=== PATIENT | female | born 1985 | race Asian ===

== ENCOUNTER 2018-01-07 06:05 | Observation (INO) | payer BC ==
[~2018-01-07] VITALS: Ht 154.9 cm; Wt 68.0 kg
[2018-01-07] MEDS ORDERED: MORPHINE 4 MG/ML INJ. SYRINGE ONE (15:00)
== END 2018-01-07 08:40 | disposition home or self-care (01) ==
LOC: SPU 06:05
PROVIDERS: ADMIT Specialist; ATTEND Specialist
DX: O26.893 Other specified pregnancy related conditions, third trimester (principal); R10.31 Right lower quadrant pain; Z3A.37 37 weeks gestation of pregnancy
CPT/HCPCS: 81002; G0378; J2270

== ENCOUNTER 2019-08-19 10:30 | Inpatient (IN) | payer BC ==
[~2019-08-19] VITALS: Ht 154.9 cm; Wt 65.8 kg
[2019-08-19] MEDS ORDERED: TERBUTALINE SULFATE 1 MG/ML VIAL SUBCUT PRN (12:45)
[2019-08-19 13:28] LABS: BILIRUBIN,URINE NEGATIVE (NEGATIVE); BLOOD, URINE 3+ (NEGATIVE); CLARITY/URINE CLEAR (CLEAR); COLOR,URINE YELLOW (YELLOW); GLUCOSE,URINE NEGATIVE (NEGATIVE); KETONES,URINE NEGATIVE (NEGATIVE); LEUKOCYTE ESTERASE ,URINE NEGATIVE (NEGATIVE); NITRITE, URINE NEGATIVE (NEGATIVE); PROTEIN URINE NEGATIVE (NEGATIVE); UROBILINOGEN,URINE 0.2 (0.2-1.0)
[2019-08-19 13:33] LABS: BASOPHILS % (AUTO) 0.4 % (0.0-2.0); EOSINOPHILS % (AUTO) 0.8 % (0.0-4.0); HEMATOCRIT 39.8 % (36-48); HEMOGLOBIN 13.5 g/dL (12.0-16.0); LYMPHOCYTES # (AUTO) 0.8 K/uL (1.0-5.5); MEAN CORPUSCULAR HEMOGLOBIN 32 pg (27-31); MEAN CORPUSCULAR HGB CONC 34 % (32-36); MEAN CORPUSCULAR VOLUME 94 fL (79.0-98.0); MONOCYTES # (AUTO) 0.5 K/uL (0.0-1.0); MONOCYTES % (AUTO) 9.5 % (1.7-9.3); NEUTROPHILS # (AUTO) 4.2 K/uL (1.8-7.7); NEUTROPHILS % (AUTO) 74.3 % (40.0-70.0); PLATELET COUNT (AUTO) 140 K/uL (130-430); RED BLOOD CELL COUNT(AUTO) 4.22 MIL/uL (4.2-6.2); RED CELL DISTRIBUTION WIDTH 14.6 % (9.0-15.0); WHITE BLOOD COUNT (AUTO) 5.6 K/uL (4.8-10.8)
[2019-08-19 13:36] LABS: BACTERIA,URINE FEW /HPF (None Seen); WBC,URINE 0-3 /HPF (0-3)
[2019-08-19 13:37] LABS: CALCIUM 9.1 mg/dL (8.4-11.0); CREATININE 0.62 mg/dL (0.55-1.30); POTASSIUM 4.1 mmol/L (3.5-5.1)
[2019-08-19 13:41] LABS: ALBUMIN 2.8 g/dL (3.4-4.8); TOTAL BILIRUBIN 0.3 mg/dL (0.0-1.0); URIC ACID 5.3 mg/dL (2.4-7.0)
[2019-08-19 13:43] LABS: INR 0.9 (0.8-1.2); PROTHROMBIN TIME 8.9 SECS (9.5-12.5)
[2019-08-19 16:19] VITALS: BP_SYST 117
[2019-08-19] MEDS ORDERED: TEMAZEPAM 15 MG CAPSULE PO PRN (17:45)
[2019-08-19] MEDS ORDERED: LR 1,000 ML IV ONE (21:21)
[2019-08-20] MEDS ORDERED: ONDANSETRON HCL 4 MG/2 ML VIAL IVP PRN ×2 (13:00→21:00)
[2019-08-20] MEDS ORDERED: HYDROmorphone 2 MG/ML VIAL IVP PRN (13:00)
[2019-08-20] MEDS ORDERED: ONDANSETRON HCL 4 MG/2 ML VIAL ONE (13:22)
[2019-08-20] MEDS ORDERED: HYDROmorphone 2 MG/ML VIAL ONE (13:23)
[2019-08-20] MEDS ORDERED: ROPIVACAINE HCL/PF 0.2% 200 ML ONE (15:07)
[2019-08-20] MEDS ORDERED: fentaNYL CITRATE/PF 100 MCG/2 ML AMP ONE (15:07)
[2019-08-20] MEDS ORDERED: OXYTOCIN/0.9 % SODIUM CHLORIDE 1,000 ML IV SCH ×2 (17:18→21:46)
[2019-08-20] MEDS ORDERED: CEFAZOLIN 2 GM IVPB PREMIX 50 ML IV ONE (20:15)
[2019-08-20] MEDS ORDERED: LR 1,000 ML IV SCH ×2 (20:15→21:46)
[2019-08-20] MEDS ORDERED: LR 500 ML IV ONE (20:55)
[2019-08-20] MEDS ORDERED: fentaNYL CITRATE/PF 100 MCG/2 ML AMP IVP PRN ×2 (21:00)
[2019-08-20] MEDS ORDERED: NALBUPHINE HCL 10 MG/ML AMP IVP PRN (21:00)
[2019-08-20] MEDS ORDERED: NALOXONE HCL 0.4 MG/ML AMP (NARCAN) IVP PRN ×2 (21:00)
[2019-08-20] MEDS ORDERED: KETOROLAC TROMETHAMINE 60 MG/2 ML VIAL IM PRN (21:00)
[2019-08-20] MEDS ORDERED: MORPHINE SULFATE 10MG/10ML PF AMP EP SCH (21:00)
[2019-08-20] MEDS ORDERED: FENT2mCg/mL-ROPIVA0.2%/NS EPID 200 ML EP SCH (21:00)
[2019-08-20] MEDS ORDERED: DIPHENHYDRAMINE INJ 50 MG/ML VIAL IVP PRN (21:00)
[2019-08-20 21:38] VITALS: BP_SYST 130
[2019-08-20] MEDS ORDERED: ANUSOL 1 EA SUPP.RECT (PREPARATION H) RC PRN (22:00)
[2019-08-20] MEDS ORDERED: DIPH-TET-PERTUS Vaccine 0.5 ML VIAL (ADACEL) I.M. PRN (22:00)
[2019-08-20] MEDS ORDERED: TEMAZEPAM 15 MG CAPSULE PO PRN (22:00)
[2019-08-20] MEDS ORDERED: HYDROcodone/ACETAMIN 5-325 MG TAB (NORCO/ VICODIN) PO PRN (22:00)
[2019-08-20] MEDS ORDERED: MEASLES,MUMPS&RUBELLA VACC/PF 12500 UNIT/0.5 ML VIAL SUBQ PRN (22:00)
[2019-08-20] MEDS ORDERED: LANOLIN 7 GM OINT. TP PRN (22:00)
[2019-08-20] MEDS ORDERED: BISACODYL 10 MG/SUPPOSITORY RC PRN (22:00)
[2019-08-20] MEDS ORDERED: RHO(D) IMMUNE GLOBULIN/MALTOSE 1500 UNITS/1.3 ML (WINHRO) IM PRN (22:00)
[2019-08-20] MEDS ORDERED: OXYCODONE/ACETAMINOPHEN 5-325 TABLET PO PRN (22:00)
[2019-08-20] MEDS ORDERED: METOCLOPRAMIDE HCL 10 MG/2 ML VIAL IVP ONE (22:45)
[2019-08-21] MEDS: CEFAZOLIN 1 GM IVPB PREMIX 50 ML IV SCH ×3 (00:07→11:49)
[2019-08-21] MEDS: SIMETHICONE 80 MG TAB.CHEW PO PRN ×3 (05:23→23:36)
[2019-08-21] MEDS: KETOROLAC TROMETHAMINE 30 MG VIAL IVP SCH ×4 (05:23→23:36)
[2019-08-21 06:54] LABS: BASOPHILS % (AUTO) 0.2 % (0.0-2.0); EOSINOPHILS % (AUTO) 0.1 % (0.0-4.0); HEMATOCRIT 32.5 % (36-48); LYMPHOCYTES % (AUTO) 10.9 % (20.5-51.5); MEAN CORPUSCULAR HEMOGLOBIN 32 pg (27-31); MEAN CORPUSCULAR HGB CONC 34 % (32-36); MEAN CORPUSCULAR VOLUME 95 fL (79.0-98.0); MONOCYTES # (AUTO) 0.6 K/uL (0.0-1.0); NEUTROPHILS # (AUTO) 7.5 K/uL (1.8-7.7); NEUTROPHILS % (AUTO) 81.8 % (40.0-70.0); PLATELET COUNT (AUTO) 117 K/uL (130-430); RED BLOOD CELL COUNT(AUTO) 3.42 MIL/uL (4.2-6.2); RED CELL DISTRIBUTION WIDTH 14.5 % (9.0-15.0); WHITE BLOOD COUNT (AUTO) 9.2 K/uL (4.8-10.8)
[2019-08-21] MEDS: DOCUSATE SODIUM 100 MG CAPSULE PO PRN (18:08)
[2019-08-21] MEDS: SENNOSIDES/DOCUSATE SODIUM 1 TAB TABLET(SENOKOT-S) PO PRN (20:20)
[2019-08-22] MEDS ORDERED: IBUPROFEN 600 MG TABLET PO SCH
[2019-08-22] MEDS: DOCUSATE SODIUM 100 MG CAPSULE PO PRN ×2 (03:08→21:03)
[2019-08-22] MEDS: SIMETHICONE 80 MG TAB.CHEW PO PRN ×5 (03:09→21:04)
[2019-08-22] MEDS: OXYCODONE/ACETAMINOPHEN *10*mg/325 mg TABLET PO PRN ×4 (03:09→21:03)
[2019-08-22] MEDS: IBUPROFEN 600 MG TABLET PO SCH ×3 (05:40→17:44)
[2019-08-22] MEDS: SENNOSIDES/DOCUSATE SODIUM 1 TAB TABLET(SENOKOT-S) PO PRN (08:57)
[2019-08-22] MEDS ORDERED: BUPIVACAINE /PF 0.75% 10 ML VIAL INJ ONE (12:07)
[2019-08-23] MEDS: IBUPROFEN 600 MG TABLET PO SCH ×2 (00:02→06:01)
[2019-08-23] MEDS: OXYCODONE/ACETAMINOPHEN *10*mg/325 mg TABLET PO PRN ×3 (03:03→12:57)
[2019-08-23] MEDS: SENNOSIDES/DOCUSATE SODIUM 1 TAB TABLET(SENOKOT-S) PO PRN (09:05)
[2019-08-23] MEDS: SIMETHICONE 80 MG TAB.CHEW PO PRN (09:05)
[2019-08-23] MEDS: DOCUSATE SODIUM 100 MG CAPSULE PO PRN (09:05)
== END 2019-08-23 13:25 | disposition home or self-care (01) | DRG 788 ==
LOC: SPU 12:00
PROVIDERS: ADMIT Specialist; ATTEND Specialist
PROC: 10D00Z1 Extraction of Products of Conception, Low, Open Approach (ICD-10-PCS; principal; 2019-08-20 20:30)
DX: O66.41 Failed attempted vaginal birth after previous cesarean delivery (principal); O33.9 Maternal care for disproportion, unspecified; O34.211 Maternal care for low transverse scar from previous cesarean delivery; O62.2 Other uterine inertia; Z37.0 Single live birth; Z3A.40 40 weeks gestation of pregnancy
CPT/HCPCS: 36415; 76805-TC; 80053; 81000-TC; 84550-TC; 85025; 85610-TC; 85730-TC; 86592; 86886; 86900; 86901; 94760; A4618; J0690; J1170; J1885; J2405; J2590; J3010; J3490